=== PATIENT | female | born 2000 | race African-American/Black ===

== ENCOUNTER 2019-10-17 23:30 | Emergency (ER) | payer MEDICAID ==
[~2019-10-17] VITALS: Ht 167.6 cm; Wt 65.8 kg
[2019-10-17 23:55] VITALS: BP 112/69
[2019-10-18] MEDS ORDERED: LIDODERM700 M1 TOPIC (00:07)
[2019-10-18] MEDS ORDERED: ROBAXIN-750750 MG PO (00:07)
[2019-10-18] MEDS ORDERED: IBUPROFEN600 M1 ORAL (00:07)
[2019-10-18 00:28] VITALS: BP 112/69
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
== END 2019-10-18 00:28 | disposition home or self-care (01) ==
LOC: EMR 23:58
DX: S16.1XXA Strain of muscle, fascia and tendon at neck level, initial encounter (principal); S29.012A Strain of muscle and tendon of back wall of thorax, initial encounter; V43.52XA Car driver injured in collision with other type car in traffic accident, initial encounter; Y92.410 Unspecified street and highway as the place of occurrence of the external cause
CPT/HCPCS: 99282